=== PATIENT | male | born 1975 | race Two or more races ===

== ENCOUNTER 2023-05-16 11:09 | Outpatient (RCR) | payer OTHER, SELFPAY ==
--- NOTE | 2023-05-19 09:39 | HO.PHP ---
On Tuesday05/16/2023,this lyric writer met with the patient for the purpose of completing an intake appointment for the [facility] treatment program at [facility] [place]. The intake appt was completed,the patient stated that he doesn't have a license currently to drive but he would get a ride to [facility] from his mother. The patient called this lyric writer on Tuesday,05/17/2023 stating that he has transportation issues therefore, he would not be able to attend [facility] today but will be her tomorrow. On Tue05/18/2023,the patient never arrived to [facility],this lyric writer called the patient twice,he did not answer either time, leaving messages asking him to contact this lyric writer and informing him that this lyric writer will be calling his emergency contact if this lyric writer doesn't hear from him. This lyric writer called the emergency contact, ( Pt's mother) there was no answer,this lyric writer left her a message informing her that we,the team are concerned about his safety and asked her to contact this lyric writer. This lyric writer also called the referral source,his prescriber HEBER Kim, to inform her of patient's status at [facility]. Melissa stated that the patient missed 2 appts with her,she gave the opinion that the Pt may have started drinking alcohol again. The [facility] plant health manager called the police and asked them to do a wellness check on the patient which they did do. The patient called this lyric writer and left a message apologizing for not coming to the program,he stated he overslept. The team made the decision to discharge the patient from [facility] at this time. The patient was informed of this and informed that he may return to [facility] if he would like to and is able to.
== END 2023-05-16 23:59 | disposition home or self-care (01) ==
LOC: HO.PHPA 11:09
PROVIDERS: Visit Provider Psychiatry & Neurology Psychiatry
DX: F33.2 Major depressive disorder, recurrent severe without psychotic features (principal); F43.10 Post-traumatic stress disorder, unspecified; F41.1 Generalized anxiety disorder; F10.20 Alcohol dependence, uncomplicated
CPT/HCPCS: 90791